=== PATIENT | male | born 1985 | race Caucasian/White ===

== ENCOUNTER 2019-09-30 16:59 | Emergency (ER) | payer MEDICAID ==
[2019-09-30] MEDS: HYDROmorphone 1 MG/ML Syringe IVPUSH ONE (17:28)
--- NOTE | 2019-09-30 17:34 | CR ---
[id number] RAD/RAD Shoulder Right 1V EXAM: RAD Shoulder Right 1V CLINICAL DATA: DISLOCATED SHOULDER COMPARISON: NO PREVIOUS SIMILAR EXAM IS AVAILABLE. FINDINGS: Anterior inferior dislocation of the right shoulder is seen. IMPRESSION: DISLOCATED SHOULDER SUSPECTED Jeremie López MD 09/30/19 1738 Thank you for allowing us to participate in the care of your patient.
[2019-09-30] MEDS ORDERED: Midazolam 1 MG/ML 2 ML SDV ONE (17:58)
[2019-09-30] MEDS ORDERED: propofoL 50 ML ONE (17:58)
--- NOTE | 2019-09-30 18:22 | CR ---
[id number] RAD/RAD Shoulder Right 1V EXAM: RAD Shoulder Right 1V CLINICAL DATA: POSTREDUCTION COMPARISON: CORRELATION IS MADE WITH THE EARLIER EXAM FINDINGS: Reduction is successful There is no fracture seen. IMPRESSION: SUCCESSFUL REDUCTION Jeremie López MD 09/30/19 [id number] Thank you for allowing us to participate in the care of your patient.
[2019-09-30] MEDS: Take Home: Acetaminophen/HYDROcodone 325-10 MG, 5 Tab Pack PO ONE (19:30)
--- NOTE | 2019-10-01 06:27 | EDM.PDOC ---
ED HPI GENERAL MEDICAL PROBLEM - General Chief Complaint: Upper Extremity Injury/Pain Stated Complaint: fell on ice Time Seen by Provider: 09/30/19 17:00 Source of Information: Reports: Patient History Limitations: Reports: No Limitations - History of Present Illness INITIAL COMMENTS - FREE TEXT/NARRATIVE: Pt. states that he slipped on the ice and injured his R shoulder. He thinks he fell onto an outstretched hand. He is complaining of intense pain and decreased ROM to the R shoulder. Denies striking head. No neck pain. He remembers the entire event. Pt. denies any history of previous injury to the R shoulder in the past. Denies any lower extremity trauma. Onset: Today Onset Date: 10/01/19 Location: Reports: Upper Extremity, Right Quality: Reports: Sharp, Throbbing Severity: Severe Right Shoulder Pain Score (Numeric/FACES): 7 - Related Data Allergies Allergy/AdvReac Type Severity Reaction Status Date / Time No Known Allergies Allergy Verified 09/30/19 17:16 Home Meds: Home Meds . [No Known Home Meds] 09/30/19 [History] Past Medical History - Past Health History Medical/Surgical History: Denies Medical/Surgical History Social & Family History - Tobacco Use Smoking Status *Q: Never Smoker - Alcohol Use Days Per Week of Alcohol Use: 3 Number of Drinks Per Day: 1 Total Drinks Per Week: 3 - Recreational Drug Use Recreational Drug Use: No Review of Systems - Review of Systems Review Of Systems: See Below Constitutional: Reports: No Symptoms Eyes: Reports: No Symptoms Ears: Reports: No Symptoms Nose: Reports: No Symptoms Mouth/Throat: Reports: No Symptoms Respiratory: Reports: No Symptoms Cardiovascular: Reports: No Symptoms GI/Abdominal: Reports: No Symptoms Genitourinary: Reports: No Symptoms Musculoskeletal: Reports: Other (see HPI) Skin: Reports: No Symptoms Neurological: Reports: No Symptoms Psychiatric: Reports: No Symptoms ED EXAM, GENERAL - Physical Exam Exam: See Below Exam Limited By: No Limitations General Appearance: Alert, WD/WN, No Apparent Distress Eye Exam: Bilateral Eye: EOMI, PERRL Nose: Normal Inspection, No Blood Throat/Mouth: Normal Inspection, Normal Lips, Normal Teeth, Normal Gums, Normal Oropharynx, Normal Voice Head: Atraumatic, Normocephalic Neck: Normal Inspection, Supple, Non-Tender, Full Range of Motion. No: Tender Lateral, Tender Midline Respiratory/Chest: No Respiratory Distress, Lungs Clear, Normal Breath Sounds, No Accessory Muscle Use, Chest Non-Tender Cardiovascular: Normal Peripheral Pulses, Regular Rate, Rhythm, No Edema, No Gallop, No JVD, No Murmur Peripheral Pulses: 4+: Radial (L), Radial (R) GI/Abdominal: Normal Bowel Sounds, Soft, Non-Tender, No Mass (Male) Exam: Deferred Rectal (Males) Exam: Deferred Back Exam: Normal Inspection, Full Range of Motion Extremities: Other (obvious deformity/dislocation of R shoulder. CMS intact. No obvious crepitus. Unable to assess full ROM due to pain.) Neurological: Alert, Oriented, CN II-XII Intact, Normal Cognition, Normal Gait, Normal Reflexes, No Motor/Sensory Deficits Psychiatric: Normal Affect, Normal Mood Skin Exam: Warm, Dry, Intact, Normal Color, No Rash Lymphatic: No Adenopathy ED TRAUMA EXTREMITY PROCEDURES - Joint Reduction Right Shoulder Sedation: Conscious Sedation Post-Reduction Imaging: Completely Reduced Progress/Comments: Anesthesia was summoned to assist with conscious sedation. Pt. was given dilaudid 1 mg IV on arrival to ER. Please refer to anesthesia note regarding the meds he received for sedation. Consent was obtained for reduction/prior to sedation. The shoulder was reduced without difficulty on the first attempt using external rotation technique. Pt. tolerated this well and reported almost complete resolution in discomfort at time of discharge. Post reduction radiographs showed complete reduction. Pt. was started on a short course of norco for pain. Course - Vital Signs Last Recorded V/S: Last Vital Signs Temp 36.7 C 09/30/19 19:19 Pulse 84 09/30/19 19:19 Resp 16 09/30/19 19:19 BP 153/89 H 09/30/19 19:19 Pulse Ox 100 09/30/19 19:19 - Orders/Labs/Meds Meds: Medications Discontinued Medications Generic Name Dose Route Start Last Admin Trade Name Freq PRN Reason Stop Dose Admin Hydrocodone Bitart/Acetaminophen 1 packet 09/30/19 19:22 09/30/19 19:30 Take Home: Acetaminophen/Hydrocodone 325-10mg PO 09/30/19 19:23 1 packet ONETIME ONE Administration Hydromorphone HCl 1 mg 09/30/19 17:19 09/30/19 17:28 Dilaudid IVPUSH 09/30/19 17:20 1 mg ONETIME ONE Administration Propofol Confirm 09/30/19 17:58 Diprivan 50 Ml Administered 09/30/19 17:59 Dose 50 mls @ as directed .ROUTE .STK-MED ONE Midazolam HCl Confirm 09/30/19 17:58 Versed 1 Mg/Ml Administered 09/30/19 17:59 Dose 2 mg .ROUTE .STK-MED ONE Departure - Departure Time of Disposition: 19:35 Disposition: Home, Self-Care 01 Clinical Impression: Dislocation, shoulder closed - Discharge Information Instructions: Acetaminophen; Hydrocodone tablets or capsules, Shoulder Dislocation, How to Use a Sling, [id number] Referrals: PCP,None [Primary Care Provider] - Forms: ED Department Discharge Additional Instructions: [place] 10/325mg 1 every 4-6 hours as needed for pain Follow-up in clinic in 10-14 days, sooner if not improving. Sepsis Event Note - Evaluation Sepsis Screening Result: No Definite Risk - Focused Exam Vital Signs: Vital Signs Temp Pulse Resp BP Pulse Ox 09/30/19 19:19 36.7 C 84 16 153/89 H 100 09/30/19 18:50 83 16 144/99 H 100 09/30/19 18:35 78 19 133/90 100 09/30/19 18:25 87 16 131/89 99 Date Exam was Performed: 10/01/19 Time Exam was Performed: 06:21
== END 2019-09-30 19:35 | disposition home or self-care (01) ==
LOC: VM.ED 16:59
DX: S43.004A Unspecified dislocation of right shoulder joint, initial encounter (principal); W00.0XXA Fall on same level due to ice and snow, initial encounter
CPT/HCPCS: 01620; 23650; 73020-RT; 96374; 99140; 99152; 99283-25; A9270-GY; J1170; J2250; J2704